=== PATIENT | male | born 1945 | race Caucasian/White ===

== ENCOUNTER 2018-06-18 22:34 | Inpatient (IN) | payer MEDICARE ==
[2018-06-18 23:24] LABS: #Lymphocytes 0.5 thou/uL (1.20-3.40); #Monocytes 0.5 thou/uL (0.11-0.59); #Neutrophils 10.3 thou/uL (1.40-6.50); %Basophils 0.1 % (0.0-1.0); %Eosinophils 0.1 % (0.0-10.0); %Lymphocytes 4.7 % (21.0-51.0); %Monocytes 4.2 % (0.0-10.0); %Neutrophils 90.9 % (42.0-75.0); Hemoglobin 8.3 g/dL (14.0-18.0); Mean Corpuscular Hemoglobin 29.2 pg (27.0-31.0); Mean Corpuscular Volume 94.1 fL (78.0-98.0); Mean Platelet Volume 7.3 fL (7.4-10.4); Platelet Count 337 thou/uL (130-400); RBC Distribution Width 17.4 % (11.5-14.5); Red Blood Cell (RBC) Count 2.83 mill/uL (4.70-6.10); White Blood Cell (WBC) Count 11.3 thou/uL (4.8-10.8)
--- NOTE | 2018-06-18 23:34 | RAD ---
Portable frontal chest radiograph: 06/18/2018 COMPARISON: None HISTORY: Dyspnea FINDINGS: There is dense opacity involving the inferior two thirds of the right hemithorax suggesting a large right pleural effusion with complete obscuration of the right lower lobe and right middle lobe. Mild blunting of left costophrenic angle suggests small volume left pleural fluid. There is mil d increased density within the medial left lung base which may signify partial consolidation/collapse of the left lower lobe. No pneumothorax. IMPRESSION: Dense opacity in the right hemithorax suggests large right pleural effusion. Underlying m ass, infectious pneumonitis, and/or aspiration cannot be excluded. Follow-up imaging following treatment to document resolution advised. Mild nonspecific pleural and parenchymal opacity in the lef t base as well.
[2018-06-18 23:44] LABS: ALT (SGPT) 11 U/L (8-55); AST (SGOT) 15 U/L (5-34); Albumin 2.9 g/dL (3.4-4.8); Alkaline Phosphatase 86 U/L (40-150); Anion Gap 11 mmol/L (10-20); BUN (Urea Nitrogen) 19 mg/dL (8.4-25.7); Bilirubin, Total 1.2 mg/dL (0.2-1.2); Calc. Creatinine Clearance 0 mL/min (70-130); Carbon Dioxide 28 mmol/L (23-31); Chloride 100 mmol/L (98-107); Estimated GFR-MDRD Greater than 90; Globulin 3.3 g/dL (2.4-3.5); Glucose 104 mg/dL (80-115); Potassium 3.2 mmol/L (3.5-5.1); Protein, Total 6.2 g/dL (5.8-8.1); Sodium 136 mmol/L (136-145)
[2018-06-18 23:57] LABS: Bilirubin Small (Negative); Blood, Urine Negative (Negative); Clarity CLOUDY (Clear); Glucose, Urine (Dipstick) Negative (Negative); Leukocyte Small (Negative); Nitrite Negative (Negative); Protein, Urine (Dipstick) 30 mg/dL (Neg-Trace); Specific Gravity, Urine 1.027 (1.002-1.036)
[2018-06-19] LABS: Bacteria/HPF None Seen HPF (None Seen); Pathc Cast-AUWi Flag 3.94 (0-2.49); RBC/HPF 0-3 HPF (0-3); Squamous Epithelial 0-3 HPF (0-3); WBC/HPF 21-50 HPF (0-3)
[2018-06-19 00:17] LABS: Hyaline Casts/LPF NONE SEEN LPF (0-3 Hyaline); Manual Microscopic Reviewed? No Path Casts Seen
[2018-06-19 00:26] LABS: CKMB 1.6 ng/mL (0-6.6)
--- NOTE | 2018-06-19 01:16 | PDOC.FPRHP ---
- History of Present Illness Chief Complaint: SOB History of Present Illness: Patient is a 72yo M who presented to the ED from [facility] in [place] with CC of weakness and SOB. The patient reports decreased appetite as well. He states that his symptoms started last and have gotten progressively worse. He also has a cough that is productive of yellow sputum. Endorses fever/chills since onset of symptoms. Patient has a hx of NV, CHF and cardiac arrest. Patient had a stroke in April of 2018 with left sided deficits and has been in rehab since then. Patient had been getting breathing treatments at the detention with minimal to no improvement in SOB. - Allergies/Adverse Reactions Allergies Allergy/AdvReac Type Severity Reaction Status Date / Time No Known Drug Allergies Allergy Verified 06/19/18 04:29 - Home Medications Medication Instructions Recorded Confirmed Type Amiodarone HCl 100 mg PO BID 06/19/18 06/19/18 History Apixaban [Eliquis] 5 mg PO BID 06/19/18 06/19/18 History Atorvastatin Calcium [Lipitor] 40 mg PO DAILY 06/19/18 06/19/18 History Escitalopram Oxalate [Lexapro] 5 mg PO DAILY 06/19/18 06/19/18 History Ferrous Sulfate 325 tablet PO DAILY 06/19/18 06/19/18 History Finasteride 5 mg PO DAILY 06/19/18 06/19/18 History Folic Acid 1 mg PO DAILY 06/19/18 06/19/18 History Omeprazole 40 mg PO DAILY 06/19/18 06/19/18 History QUEtiapine Fumarate [SEROquel] 25 mg PO HS 06/19/18 06/19/18 History Tamsulosin HCl [Flomax] 0.8 mg PO DAILY 06/19/18 06/19/18 History - History PMHx: CVA w/ left sided deficits, anemia, a fub, BPH, HLD, osteoarthritis, PUD, NV x2 last year PSHx: peg tube placement, cholecystectomy FHx: non contributory Social: former tobacco user for over 30 yrs; denies alcohol or drug use - Review of Systems General: reports: fever/chills, fatigue. denies: weight/appetite/sleep changes , night sweats ENT: reports: nasal congestion, rhinorrhea Respiratory: reports: cough, congestion, shortness of breath. denies: exercise intolerance Cardiovascular: denies: chest pain, palpitation, edema Gastrointestinal: denies: nausea, vomiting, diarrhea, constipation, abdominal pain Genitourinary: denies: dysuria Skin: denies: rashes, lesions Neurological: reports: weakness - Vital signs BP: 91/54, Pulse: 97, Resp: 24, Temp: 99.0 (Oral), Pain: 0, O2 sat: 94 on 4L Oxygen, Time: 06/18/2018 22:37. Weight: 63.5kg BP: 91/56, Pulse: 85, Resp: 28, O2 sat: 96 on Bipap, Time: 06/19/2018 01:44. - Physical Exam Constitutional: awake, alert and oriented -Constitutional: mild resp distress HEENT: normocephalic and atraumatic, PERRLA, EOMI, grossly normal vision, grossly normal hearing, MMM, good dention Neck: supple, FROM, trachea midline Chest: no-tender to palpation, no lesions Heart: RRR, normal S1/S2, no murmurs/rubs/gallops, pulses present -Lungs: Mild resp distress, retractions present, exp wheeze heard diffusely, coarse breath sounds Abdomen: soft, non-tender, bowel sounds present, no masses/distention Musculoskeletal: normal structure, normal tone FMR H&P: Results - Labs Result Diagrams: 06/19/18 03:01 06/19/18 02:48 Lab results: WBC 11.3 thou/uL (4.8-10.8) H 06/18/18 23:12 Hgb 8.3 g/dL (14.0-18.0) L 06/18/18 23:12 Hct 26.7 % (42.0-52.0) L 06/18/18 23:12 MCV 94.1 fL (78.0-98.0) 06/18/18 23:12 Plt Count 337 thou/uL (130-400) 06/18/18 23:12 Neutrophils % 90.9 % (42.0-75.0) H 06/18/18 23:12 Sodium 136 mmol/L (136-145) 06/18/18 23:12 Potassium 3.2 mmol/L (3.5-5.1) L 06/18/18 23:12 Chloride 100 mmol/L (98-107) 06/18/18 23:12 Carbon Dioxide 28 mmol/L (23-31) 06/18/18 23:12 BUN 19 mg/dL (8.4-25.7) 06/18/18 23:12 Creatinine 0.81 mg/dL (0.7-1.3) 06/18/18 23:12 Glucose 104 mg/dL (80-115) 06/18/18 23:12 Lactic Acid 1.1 mmol/L (0.5-2.2) 06/18/18 23:12 Calcium 9.0 mg/dL (7.8-10.44) 06/18/18 23:12 Total Bilirubin 1.2 mg/dL (0.2-1.2) 06/18/18 23:12 AST 15 U/L (5-34) 06/18/18 23:12 ALT 11 U/L (8-55) 06/18/18 23:12 Alkaline Phosphatase 86 U/L (40-150) 06/18/18 23:12 CK-MB (CK-2) 1.6 ng/mL (0-6.6) 06/18/18 23:12 B-Natriuretic Peptide 1309.7 pg/mL (0-100) H 06/18/18 23:12 Serum Total Protein 6.2 g/dL (5.8-8.1) 06/18/18 23:12 Albumin 2.9 g/dL (3.4-4.8) L 06/18/18 23:12 Urine Ketones Negative mg/dL (Negative) 06/18/18 23:45 Urine Blood Negative (Negative) 06/18/18 23:45 Urine Nitrite Negative (Negative) 06/18/18 23:45 Ur Leukocyte Esterase Small (Negative) H 06/18/18 23:45 Urine RBC 0-3 HPF (0-3) 06/18/18 23:45 Urine WBC 21-50 HPF (0-3) H 06/18/18 23:45 Ur Squamous Epith Cells 0-3 HPF (0-3) 06/18/18 23:45 Urine Bacteria None Seen HPF (None Seen) 06/18/18 23:45 - Radiology Interpretation Chest x-ray Status: report reviewed by me (Dense opacity in the right hemithorax suggests large right pleural effusion. Underlying m ass, infectious pneumonitis, and/or aspiration cannot be excluded. Follow-up imaging following treatment to document resolution advised. Mild nonspecific pleural and parenchymal opacity in the left base as well.) FMR H&P: A/P - Problem List (1) Sepsis Current Visit: Yes Status: Acute Code(s): A41.9 - SEPSIS, UNSPECIFIED ORGANISM (2) Pneumonia Current Visit: Yes Status: Acute Code(s): J18.9 - PNEUMONIA, UNSPECIFIED ORGANISM (3) CHF (congestive heart failure) Current Visit: Yes Status: Acute Code(s): I50.9 - HEART FAILURE, UNSPECIFIED (4) BPH (benign prostatic hyperplasia) Current Visit: Yes Status: Acute Code(s): N40.0 - BENIGN PROSTATIC HYPERPLASIA WITHOUT LOWER URINRY TRACT SYMP (5) Leukocytosis Current Visit: Yes Status: Acute Code(s): D72.829 - ELEVATED WHITE BLOOD CELL COUNT, UNSPECIFIED (6) History of NV (myocardial infarction) Current Visit: Yes Status: Acute Code(s): I25.2 - OLD MYOCARDIAL INFARCTION (7) Pleural effusion Current Visit: Yes Status: Acute Code(s): J90 - PLEURAL EFFUSION, NOT ELSEWHERE CLASSIFIED - Plan Acute hypoxemic resp failure 2/2 CHF exacerbation leading to pleural effusion Patient w/ SOB and CXR showing dense opacity in the right hemithorax suggesting large right pleural effusion. Patient w/ hx of CHF. - Will give one dose of lasix and see how patient responds - Pulm consulted, appreciate recs; pt will likely need thoracentesis - Currently satting well on Bipap - BNP 1309.7, Will get echo to evaluate CHF. - Strict I/Os, daily weights, fluid restrict 1800ml Possible PNA - elevated procal, CT scan to evaluate. Will trend procal w/ AM labs. - Will start zosyn Sepsis 2/2 above - see plan above Normocytic Anemia - Hgb 8.3, will trend - Working further w/ peripheral smear, iron studies, folate/B12 Elevated Troponin - 0.0329, will continue to trend - Likely due to demand ischemia vs NSTEMI BPH - home meds Hx of NV - aware, will continue to monitor VS Dispo: admit to IMCU on BIpap, inpatient; > 2midnights Code: FULL DVT ppx: lovenox GI ppx: protonix Lines: right femoral central line placed 06/19 [address] De Leon FMR H&P: Upper Level - Pertinent history 72 yo WM PMH CAD, CHF, and recent CVA. Presents from SNF/NH with a 5 day hx of worsening SOB and subjective fever/chills. No other complaints. ER: labs, EKG, CXR, right femoral line. No medications given. - Pertinent findings Vitals: BP 80-90/50s, SpO2 99% on BiPAP, resp 28 GEN: Mild respiratory distress, speaks in short sentences. CV: RRR, no murmur Pulm: Coarse breath sounds throughout Labs. WBC 11.3, neut 90.9% K 3.2, Trop 0.329, CKMB 1.6, BNP 1300, Procal 1.05 AB.51/ 32.9/55.8/25.4 EKG: NSR CXR: right pleural effusion vs RLL pneumonia - Plan Date/Time: 06/19/18115 I, Darrick Edwards MD, have evaluated this patient and agree with findings/plan as outlined by equine intern resident. Pertinent changes/additions are listed here. 1. Acute hypoxic respiratory distress 2/2 CHF exacerbation vs Aspiration pneumonia: continue BiPAP, since CXR concerning for fluid overload will give Lasix 20 mg IVP and see if symptoms improve. If BP drops, will start pressors and replace IV fluids. Empirically treat with IV zosyn 2. Possible sepsis 2/2 CAP vs aspiration PNA: meets sirs criteria and procalcitonin elevated. IV Abx, blood cultuers, urine cultures, 3. Pleural effusion: CT to evaluate. Consider thoracentesis vs CV surgery consult if CT concerning for empyema 4. Hx CHF: TTE to evaluate, see plan above, BNP below previous exacerbation, 5. Demand ischemia vs NSTEMI: if repeat trop down trending or stable, will not cover but if trending up, start therapeutic lovenox 6. Respiratory alkalosis: BiPAP 7. Hypokalemia: replace with IV KCl, check magnesium 8. Normocytic anemia: iron studies, B12, folate, peripheral smear. Likely 2/2 chronic disease Diet: NPO while on BiPAP PPx: lovenox CODE: FULL Dispo: inpatient, IMCU, >2 midnights. Addendum - Attending - Attending Attestation Date/Time: 06/19/18 0248 I personally evaluated the patient and discussed the management with Dr. Camarena and Dr. Edwards I agree with the History, Examination, Assessment and Plan documented above with any addition or exceptions noted below. 72 yo male with multiple medical conditions presents for evaluation of SOB. Patient with progressive SOTO, SOB over the past few weeks. Worsening weakness. On exam patient with severe respiratory distress with unable to maintain normal O2 saturation while talking. Other VS abnormal. Stat ABG ordered along with BiPAP. Pathologic lung findings on exam and imaging. Will admit patient to IMCU at this time. Continue BiPAP throughout the night. Strict I/Os. Give IVFs. Will place central line incase pressors/inotrope needed. Will need pulm consult in AM for tap. Cultures pending. Will start empiric antibx for suspected pulmonary source. Risk for aspiration present. ECHO and cards in AM. Trend trop. AmeyaMD
[2018-06-19 02:03] LABS: Actual Bicarbonate (HCO3a) 25.4 mEq/L (22-28); Base Excess (BEa) 2.4 mEq/L (-2.0 to +3.0); CO2 Tension 32.9 mmHg (35.0-45.0); O2 Tension (PaO2) 55.8 mmHg (> 70.0); pH, Arterial 7.51 (7.35-7.45)
[2018-06-19] MEDS ORDERED: Acetaminophen 650 MG Suppository PR PRN (02:03)
[2018-06-19] MEDS ORDERED: Ondansetron PF 4 MG/2 ML Vial IVP PRN (02:03)
[2018-06-19] MEDS ORDERED: Acetaminophen 325 MG TAB PO PRN (02:03)
[2018-06-19] MEDS ORDERED: Ondansetron ODT 4 MG TAB PO PRN (02:03)
[2018-06-19 02:04] LABS: Analyzer IN Cardio ER; Calcium, Ionized 1.13 mmol/L (1.12-1.30); Carboxyhemoglobin (COHb) 0.6 gm% (0.0-3.0); Hemoglobin (Hb) 7.9 g/dL (14.0-18.0); Potassium - ABG Lab 2.96 mmol/L (3.70-5.30)
[2018-06-19 02:05] LABS: ALV-art Gradient 159.755 (0-20); Puncture Site LRA
[2018-06-19] MEDS ORDERED: Furosemide 20 MG/2 ML VIAL SLOW IVP SCH ×2 (02:15→09:15)
[2018-06-19] MEDS ORDERED: Potassium Chloride 40 MEQ in Sodium Chloride 0.9% 250 ML 250 ML IVPB SCH (03:00)
[2018-06-19 03:14] LABS: Hemoglobin 7.3 g/dL (14.0-18.0); Mean Corpuscular HGB CONC 32.6 g/dL (32.0-36.0); Mean Corpuscular Hemoglobin 30.6 pg (27.0-31.0); Mean Corpuscular Volume 93.7 fL (78.0-98.0); Mean Platelet Volume 6.9 fL (7.4-10.4); Platelet Count 300 thou/uL (130-400); RBC Distribution Width 17.3 % (11.5-14.5); Red Blood Cell (RBC) Count 2.39 mill/uL (4.70-6.10); White Blood Cell (WBC) Count 10.3 thou/uL (4.8-10.8)
[2018-06-19] MEDS ORDERED: guaiFENesin/DM ER PO SCH (03:15)
[2018-06-19 03:16] LABS: Iron Binding Capacity, Total 123 mcg/dL (261-462); Magnesium 1.4 mg/dL (1.6-2.6)
[2018-06-19 03:23] LABS: Iron Less than 8 ug/dL (65-175); Transferrin, Serum 98 mg/dL (163-344)
[2018-06-19] MEDS ORDERED: Magnesium 2 GM/50 ML 2 GM in Premix Bag 1 BAG IVPB SCH (03:30)
[2018-06-19 03:37] LABS: CKMB 1.1 ng/mL (0-6.6)
[2018-06-19 04:07] LABS: Band 6 % (5-11); Lymphocytes 6 % (21-51); MDiff Complete? YES; Monocytes 1 % (0-10); Neutrophil 87 % (42-75); Platelet Morphology Comment Appears Adequate
[2018-06-19 04:19] LABS: Anion Gap 14 mmol/L (10-20); BUN (Urea Nitrogen) 19 mg/dL (8.4-25.7); Calc. Creatinine Clearance 92 mL/min (70-130); Calcium 8.5 mg/dL (7.8-10.44); Carbon Dioxide 23 mmol/L (23-31); Chloride 102 mmol/L (98-107); Estimated GFR-MDRD Greater than 90; Glucose 100 mg/dL (80-115); Potassium 3.1 mmol/L (3.5-5.1); Sodium 136 mmol/L (136-145)
[2018-06-19 04:53] LABS: Folate (Folic Acid) 15.4 ng/mL (7.0-31.4)
[2018-06-19 07:03] LABS: Troponin I 0.287 ng/mL (< 0.028)
[2018-06-19] MEDS: Piperacillin/Tazobactam 4.5 GM in Sodium Chloride 0.9% 100 ML IVPB SCH ×4 (07:30→23:51)
--- NOTE | 2018-06-19 08:30 | CON ---
DATE OF CONSULTATION: HISTORY OF PRESENT ILLNESS: A 72-year-old gentleman who was transferred from a group home for symptoms of weakness and shortness of breath. X-ray shows a massive right-sided pleural effusion. He has been placed on a BiPAP. This morning, he is denying any chest pain, chills, or sweats. PAST MEDICAL HISTORY: Pertinent for coronary artery disease, CHF, previous cardiac arrest, multiple cardiac stents, history of previous UTI, history of left-sided weakness from the stroke. History atrial fibrillation, BPH, arthritis, peptic ulcer disease. PREVIOUS SURGERIES: Gallbladder, PEG. SOCIAL HISTORY: Previous tobacco abuse, a pack a day. HOME MEDICINES: Includes ferrous sulfate. Additional medicine difficult to verify at this stage. I will try and get additional information from the group home. Since admission, he was started on, 1. Zosyn. 2. Lovenox. REVIEW OF SYSTEMS: Otherwise 10 point negative. PHYSICAL EXAMINATION: GENERAL: He is awake, alert, responsive. VITAL SIGNS: Blood pressure is 90/60, pulse 75, saturations are 95% on BiPAP, respiratory rate 18. CHEST: Extensive rhonchi and crackles. CARDIAC: Normal S1, S2. No gallops. ABDOMEN: No masses. LABORATORY DATA: PO2 is 80, pCO2 55, pH 7.51. He is on a BiPAP. His lytes are normal. Potassium 3.1. His BNP was 1300. X-ray, pleural effusion. Urine shows WBCs. IMPRESSION: 1. History of cerebrovascular accident with left-sided weakness. 2. Large pleural effusion. 3. Respiratory failure. 4. Congestive heart failure. 5. Previous cardiac arrest with atrial fibrillation. 6. Chronic anemia. 7. Severe deconditioning. 8. Urinary tract infection. PLAN: Discontinue BiPAP. Do thoracentesis for relief of his dyspnea and hypoxemia. Agree with empiric antibiotics and neb treatments and steroids initiated. PT, supportive care. We will discuss with family as they arrive. This is a consultation note, 70 minutes, 50% exclusive of thoracentesis time. Job ID: [id number]
[2018-06-19 08:44] LABS: BF Color Yellow; Body Fluid Source Thoracentesis Fluid; Clarity Hazy (Clear); RBC Background Count 0.006; Tube # EDTA
[2018-06-19 08:46] LABS: WBC/NonHematic-Auto 2930 /cumm
[2018-06-19 08:55] LABS: Fluid, Triglycerides 16 mg/dL (Not Available); Pleural Fluid, Amylase Less than 30 U/L (Not Available); Pleural Fluid, Glucose 67 mg/dL; Pleural Fluid, LDH 535 U/L (Not Available); Pleural Fluid, Protein 2.6 g/dL
[2018-06-19 09:01] LABS: BF RBC Count - Manual 183 /cumm
--- NOTE | 2018-06-19 09:18 | RAD ---
PORTABLE CHEST 1 VIEW: Date: 06/19/18 Time: 0829 hours HISTORY: Dyspnea. FINDINGS/IMPRESSION: Comparison made with exam of previous day. Mild interval improvement is seen in the size of the right pleural effusion since the previous day. R emainder of exam is otherwise stable. POS: TPC
--- NOTE | 2018-06-19 09:36 | CT ---
EXAM: CT of the chest without contrast HISTORY: Pleural effusion COMPARISON: Chest x-ray 06/19/2018 TECHNIQUE: Multiple contiguous axial images were obtained in a CT the chest without contrast. Coronal reformats were performed. FINDINGS: HEART: There is a moderate pericardial effusion. Calcification are seen in the coronary arteries. MEDIASTINUM: No hilar or mediastinal lymphadenopathy. Evaluation of the mediastinum is limited withou t IV contrast. LUNGS: Consolidation is seen in the right lung with aeration of the superior aspect of the thorax. At electasis is seen in the left lung base. PLEURAL SPACE: There are tiny bilateral pleural effusions. CHEST WALL SOFT TISSUES: Unremarkable OSSEOUS STRUCTURES: Unremarkable VISUALIZED SUBDIAPHRAGMATIC STRUCTURES: Unremarkable IMPRESSION: 1. Right-sided pneumonia 2. Tiny bilateral pleural effusions. 3. Pericardial effusion
[2018-06-19 09:43] LABS: BF Segmented Neutrophils 89 %; Cell Count Non Hematic 8 %; Lymphocytes 3 %
[2018-06-19] MEDS: Potassium Chloride 20 MEQ TAB PO SCH (10:17)
[2018-06-19] MEDS: Enoxaparin Sodium 40 MG/0.4 ML SYRINGE SC SCH (10:17)
[2018-06-19] MEDS: methylPREDNISolone Sod Succ 40 MG VIAL IVP SCH ×3 (12:36→23:50)
--- NOTE | 2018-06-19 14:39 | OP ---
DATE OF PROCEDURE: 06/19/2018 PROCEDURE PERFORMED: Thoracentesis. INDICATIONS: Pleural effusion. DESCRIPTION OF PROCEDURE: After informed consent, the right posterior thorax was cleaned with chlorhexidine. 1% Xylocaine was infiltrated into the right 9th intercostal space in the midscapular line. Pleural cavity was entered in and 20 mL of slightly turbid yellow fluid was drained without any difficulty. Thereafter, using an 8-Romanian catheter, a total of 1800 mL was removed without any problems. The patient tolerated the procedure well. Pleural effusion sent for appropriate studies including cytology and culture. Job ID: [id number]
[2018-06-19] MEDS: guaiFENesin/DM ER PO SCH (21:14)
[2018-06-20] MEDS: Piperacillin/Tazobactam 4.5 GM in Sodium Chloride 0.9% 100 ML IVPB SCH ×3 (05:12→17:07)
[2018-06-20] MEDS: methylPREDNISolone Sod Succ 40 MG VIAL IVP SCH ×3 (05:12→17:07)
--- NOTE | 2018-06-20 08:29 | PRG ---
DATE OF SERVICE: 06/20/2018 SUBJECTIVE: This morning, he is better. He is less short of breath. OBJECTIVE: VITAL SIGNS: His saturations are 96% on 3 L, respiratory , temperature 97, blood pressure 99/57. CHEST: Bilateral rhonchi and wheezing, right greater than left. CARDIAC: Normal S1, S2. No gallops. ABDOMEN: No masses. LABORATORY DATA: His echo shows EF is only 15%. His pleural fluid protein was 2.6. LDH was 535, but he had 89 segs. White count was 2000. I am concerned about his chest x-ray which shows some volume loss in the right lung consistent with atelectatic lung pneumonia along with the pleural effusion. IMPRESSION: Right parapneumonic effusion, CHF, severe deconditioning. Continue Zosyn, neb treatments, supportive care. Chest x-ray being ordered. Await culture of the pleural fluid and cytology. Job ID: [id number]
[2018-06-20] MEDS ORDERED: Non-Formulary Item 1 EACH (Omeprazole [Omeprazole] 40 MG) PO SCH (09:00)
[2018-06-20] MEDS: Furosemide 40 MG/4 ML VIAL SLOW IVP SCH (09:03)
[2018-06-20] MEDS: Tamsulosin HCl 0.4 MG CAP PO SCH (09:03)
[2018-06-20] MEDS: Enoxaparin Sodium 40 MG/0.4 ML SYRINGE SC SCH (09:03)
[2018-06-20] MEDS: Potassium Chloride 20 MEQ TAB PO SCH (09:04)
[2018-06-20] MEDS: Ferrous Sulfate 325 MG TAB PO SCH (09:04)
[2018-06-20] MEDS: Escitalopram Oxalate 10 mg Tablet PO SCH (09:05)
[2018-06-20] MEDS: Finasteride 5 MG TAB PO SCH (09:05)
[2018-06-20] MEDS: Amiodarone 200 MG TAB PO SCH ×2 (09:05→20:53)
[2018-06-20] MEDS: Folic Acid 1 MG TAB PO SCH (09:05)
[2018-06-20] MEDS: Atorvastatin Calcium 40 MG TAB PO SCH (09:05)
--- NOTE | 2018-06-20 09:15 | RAD ---
FRONTAL VIEW CHEST: Date: 06/20/18 INDICATION: CHF. FINDINGS: There is prominence of the cardiomediastinal silhouette with adjacent prominent pleural based density of the right hemithorax. Mild left basilar density is present. There is vascular congestion. IMPRESSION: 1. Decompensated CHF. 2. Moderate volume right pleural effusion with adjacent parenchymal density that may be related to e gerardo and/or pneumonia. 3. Mild left effusion. 4. Recommend follow-up to resolution. POS: TPC
[2018-06-20] MEDS: guaiFENesin/DM ER PO SCH ×2 (10:40→20:52)
--- NOTE | 2018-06-20 11:25 | PDOC.FM ---
- Subjective Subjective: MAUREEN overnight. Pt reports he is breathing much better after the thoracentesis yesterday. CXR shows persistent pleural fluid and concern for possible pneumonia. - Objective MAR Reviewed: Yes Vital Signs & Weight: Vital Signs (12 hours) Temp Pulse Resp Pulse Ox 06/20/18 11:05 96.8 F L 06/20/18 08:00 100 06/20/18 07:48 71 25 H 96 06/20/18 07:15 97.4 F L 06/20/18 04:00 97.4 F L 98 06/20/18 00:24 73 13 97 06/20/18 00:13 97.7 F 06/20/18 00:00 98 Weight Admit Weight 70.307 kg Weight 68.946 kg Most Recent Monitor Data Heart Rate from ECG 68 NIBP 99/64 NIBP BP-Mean 75 Respiration from ECG 24 SpO2 93 I&O: 06/19/18 06/20/18 06/21/18 06:59 06:59 06:59 Intake Total 923 Output Total 3975 Balance -3052 Result Diagrams: 06/19/18 03:01 06/19/18 02:48 Phys Exam - Physical Examination Constitutional: NAD HEENT: PERRLA, sclera anicteric Neck: no nodes, no JVD Respiratory: no wheezing, no rhonchi rales scattered, diminished bases b/l Cardiovascular: RRR, no significant murmur, no rub Gastrointestinal: soft, non-tender, no distention, positive bowel sounds Musculoskeletal: pulses present, edema present (2+-3+) Neurological: non-focal, moves all 4 limbs Psychiatric: normal affect Skin: no rash Dx/Plan (1) CHF (congestive heart failure) Code(s): I50.9 - HEART FAILURE, UNSPECIFIED Status: Acute (2) History of PR (myocardial infarction) Code(s): I25.2 - OLD MYOCARDIAL INFARCTION Status: Acute (3) Pleural effusion Code(s): J90 - PLEURAL EFFUSION, NOT ELSEWHERE CLASSIFIED Status: Acute (4) Pneumonia Code(s): J18.9 - PNEUMONIA, UNSPECIFIED ORGANISM Status: Acute (5) Sepsis Code(s): A41.9 - SEPSIS, UNSPECIFIED ORGANISM Status: Acute (6) BPH (benign prostatic hyperplasia) Code(s): N40.0 - BENIGN PROSTATIC HYPERPLASIA WITHOUT LOWER URINRY TRACT SYMP Status: Acute - Plan Plan: Acute hypoxemic resp failure 2/2 CHF exacerbation leading to pleural effusion Patient w/ SOB and CXR showing dense opacity in the right hemithorax suggesting large right pleural effusion. S/P thoaracentesis. - continue diuresis - await cytology and pleural cultures - cont abx - likely combined CHF and infectious etiology PNA - elevated procal, - cont zosyn and await pleural cultures - 1/2 bcx show strep pneumo, consider de-escalation after sensitivities Sepsis 2/2 above - VSS - cont abx and monitor Normocytic Anemia -will trend Elevated Troponin - down trended BPH - home meds Hx of PR - aware, will continue to monitor VS Dispo: Stable, cont to monitor this am in IMCU, if continued diuresis and improved vitals, transfer to telemetry later Code: FULL DVT ppx: lovenox GI ppx: protonix Lines: right femoral central line placed 06/19 2 0200 Addendum - Attending - Attending Attestation Date/Time: 06/20/18 [id number] I personally evaluated the patient and discussed the management with Dr. Sheikh. I agree with the History, Examination, Assessment and Plan documented above with any addition or exceptions noted below. No cp/sob/n/v/f/c.
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
[2018-06-21] MEDS: Piperacillin/Tazobactam 4.5 GM in Sodium Chloride 0.9% 100 ML IVPB SCH ×2 (00:42→05:58)
[2018-06-21] MEDS: methylPREDNISolone Sod Succ 40 MG VIAL IVP SCH ×2 (00:42→05:58)
[2018-06-21 06:45] LABS: Hemoglobin 7.3 g/dL (14.0-18.0)
[2018-06-21] MEDS ORDERED: Albuterol Sulfate 1.25 MG/3 ML NEB NEB PRN (08:13)
[2018-06-21 08:26] LABS: #Lymphocytes 0.4 thou/uL (1.20-3.40); #Monocytes 0.2 thou/uL (0.11-0.59); #Neutrophils 8.4 thou/uL (1.40-6.50); %Eosinophils 0.1 % (0.0-10.0); %Lymphocytes 4.4 % (21.0-51.0); %Neutrophils 93.5 % (42.0-75.0); Hemoglobin 7.9 g/dL (14.0-18.0); Mean Corpuscular HGB CONC 31.1 g/dL (32.0-36.0); Mean Corpuscular Hemoglobin 29.2 pg (27.0-31.0); Mean Platelet Volume 7.5 fL (7.4-10.4); Platelet Count 346 thou/uL (130-400); RBC Distribution Width 17.3 % (11.5-14.5); Red Blood Cell (RBC) Count 2.71 mill/uL (4.70-6.10)
--- NOTE | 2018-06-21 08:35 | PDOC.CTH ---
Cardiology Progress Note - Subjective EP progress note 06/21/18 Feels better with diuresis. - Objective Vital Signs Temp Pulse Resp Pulse Ox 06/21/18 08:16 71 20 06/21/18 07:54 100 06/21/18 07:10 96.4 F L 06/21/18 04:00 100 06/21/18 03:27 97.2 F L 06/21/18 00:15 60 14 100 06/21/18 00:00 99 06/20/18 23:26 97.1 F L Admit Weight 155 lb Weight 153 lb 06/20/18 06/21/18 06/22/18 06:59 06:59 06:59 Intake Total 923 1260 Output Total 3975 1450 Balance -3052 -190 - Physical Examination General/Neuro: alert & oriented x3, NAD Neck: no JVD present Lungs: CTA Heart: RRR Abdomen: no HSM, soft Extremities: + edema B (0) - Telemetry Telemetry Rhythm: SR - Labs Result Diagrams: 06/21/18 08:07 06/21/18 08:07 Troponin/CKMB CK-MB (CK-2) 1.1 ng/mL (0-6.6) 06/19/18 02:48 Troponin I 0.287 ng/mL (< 0.028) H 06/19/18 06:20 - Assessment/Plan 1. Acute on chronic CHF with ischemic cardiomyopathy. Severely reduced LVEF:10- 15%. 2. Paroxysmal Atrial fibrillation by history, in SR on low dose amiodarone and chr Eliquis. = monitor 3. History of recurrent CVA. residual hemiparesis. 4. CAD. possible ME by history and subsequent stenting in [facility] 04/2018. 5. History of GI bleed and subsequent Gastric surgery/Peg tube in 04/2018. 6. Large pleural effusion. Status post tap. 7. COPD/smoking 8. Anemia If indeed coronary re-vascularization took place in April, I would recommend reassessing his LVEF in July. IF LVEF <35%, he would benefit from prophilactic ICD placement. Life vest in the interim is an option, albeit pt derives some benfit from continued amiodarone treatment. so far no Ventricular ectopy.
--- NOTE | 2018-06-21 08:35 | PRG ---
DATE OF SERVICE: 06/21/2018 SUBJECTIVE: This morning, he is better. OBJECTIVE: VITAL SIGNS: His saturations are 100% on 2 L, temperature 97, blood pressure 133/58, respiratory rate 18. GENERAL: Otherwise, denies any pain or discomfort. CHEST: Decreased breath sounds. No wheezing. CARDIAC: Normal S1, S2. No gallop. ABDOMEN: No masses. LABORATORY DATA: His culture has grown Streptococcus pneumoniae from his right common femoral vein, probably a pathogen, probably accounted for his parapneumonic effusion. IMPRESSION: 1. Parapneumonic effusion. 2. Streptococcus pneumoniae sepsis. PLAN: He needs additional antibiotics. Will start on Rocephin. Otherwise, continue PT, supportive care, nutrition. Cardiology on board. Job ID: [id number]
[2018-06-21 08:43] LABS: Anion Gap 11 mmol/L (10-20); BUN (Urea Nitrogen) 21 mg/dL (8.4-25.7); Calc. Creatinine Clearance 85 mL/min (70-130); Calcium 8.7 mg/dL (7.8-10.44); Carbon Dioxide 28 mmol/L (23-31); Chloride 101 mmol/L (98-107); Estimated GFR-MDRD Greater than 90; Glucose 193 mg/dL (80-115); Potassium 3.1 mmol/L (3.5-5.1); Sodium 137 mmol/L (136-145)
[2018-06-21] MEDS ORDERED: Cefdinir 300 MG CAP PO SCH (09:00)
[2018-06-21] MEDS: Enoxaparin Sodium 40 MG/0.4 ML SYRINGE SC SCH (09:24)
[2018-06-21] MEDS: cefTRIAXone\\ROCEPHIN 2 GM in Sodium Chloride 0.9% 100 ML IVPB SCH (09:24)
[2018-06-21] MEDS: guaiFENesin/DM ER PO SCH ×2 (09:24→20:40)
[2018-06-21] MEDS: Furosemide 40 MG/4 ML VIAL SLOW IVP SCH (09:25)
[2018-06-21] MEDS: Potassium Chloride 20 MEQ TAB PO SCH (09:25)
[2018-06-21] MEDS: Escitalopram Oxalate 10 mg Tablet PO SCH (09:25)
[2018-06-21] MEDS: Amiodarone 200 MG TAB PO SCH ×2 (09:25→20:39)
[2018-06-21] MEDS: Finasteride 5 MG TAB PO SCH (09:26)
[2018-06-21] MEDS: Atorvastatin Calcium 40 MG TAB PO SCH (09:26)
[2018-06-21] MEDS: Tamsulosin HCl 0.4 MG CAP PO SCH (09:27)
[2018-06-21] MEDS: Folic Acid 1 MG TAB PO SCH (09:27)
[2018-06-21] MEDS: Ferrous Sulfate 325 MG TAB PO SCH (09:27)
--- NOTE | 2018-06-21 10:20 | PDOC.FM ---
- Subjective Subjective: MAUREEN overnight. Pt rpeorts he is feeling better and breathing continues to improve. - Objective MAR Reviewed: Yes Vital Signs & Weight: Vital Signs (12 hours) Temp Pulse Resp Pulse Ox 06/21/18 08:16 71 20 06/21/18 07:54 100 06/21/18 07:10 96.4 F L 06/21/18 04:00 100 06/21/18 03:27 97.2 F L 06/21/18 00:15 60 14 100 06/21/18 00:00 99 06/20/18 23:26 97.1 F L Weight Admit Weight 70.307 kg Weight 69.4 kg Most Recent Monitor Data Heart Rate from ECG 69 NIBP 133/58 NIBP BP-Mean 83 Respiration from ECG 24 SpO2 100 I&O: 06/20/18 06/21/18 06/22/18 06:59 06:59 06:59 Intake Total 923 1260 Output Total 3975 1450 Balance -3052 -190 Result Diagrams: 06/21/18 08:07 06/21/18 08:07 Phys Exam - Physical Examination Constitutional: NAD HEENT: PERRLA, sclera anicteric Neck: no nodes Respiratory: no rhonchi, wheezing present (expiratory) scattered rales Cardiovascular: RRR, no significant murmur, no rub Gastrointestinal: soft, non-tender, no distention, positive bowel sounds Musculoskeletal: no edema, pulses present Neurological: non-focal, moves all 4 limbs Skin: no rash, cap refill <2 seconds Dx/Plan (1) CHF (congestive heart failure) Code(s): I50.9 - HEART FAILURE, UNSPECIFIED Status: Acute (2) History of [place] (myocardial infarction) Code(s): I25.2 - OLD MYOCARDIAL INFARCTION Status: Acute (3) Pleural effusion Code(s): J90 - PLEURAL EFFUSION, NOT ELSEWHERE CLASSIFIED Status: Acute (4) Pneumonia Code(s): J18.9 - PNEUMONIA, UNSPECIFIED ORGANISM Status: Acute (5) Sepsis Code(s): A41.9 - SEPSIS, UNSPECIFIED ORGANISM Status: Acute (6) BPH (benign prostatic hyperplasia) Code(s): N40.0 - BENIGN PROSTATIC HYPERPLASIA WITHOUT LOWER URINRY TRACT SYMP Status: Acute - Plan Plan: Acute hypoxemic resp failure 2/2 CHF exacerbation leading to pleural effusion Patient w/ SOB and CXR showing dense opacity in the right hemithorax suggesting large right pleural effusion. S/P thoaracentesis. - continue diuresis - cardiology and EP consulted, will await recommendations PNA - elevated procal, - abx per pulm zosyn-->omnicef-->rocephin - steroids per pulm Sepsis 2/2 above - resolved Normocytic Anemia -will trend Elevated Troponin - down trended BPH - home meds Hx of DE - aware, will continue to monitor VS Dispo: Stable, transfer to telemetry, await EP and cards recs. Abx per pulm. Code: FULL DVT ppx: lovenox GI ppx: protonix Lines: right femoral central line placed 06/19 2 0200 Addendum - Attending - Attending Attestation Date/Time: 06/21/18 1039 I personally evaluated the patient and discussed the management with Dr. Sheikh. I agree with the History, Examination, Assessment and Plan documented above with any addition or exceptions noted below. Patient doing well. NO f/c/cough/congestion. Lung exam continues to improve. Transition to PO Abx as persistently AF with marked improvement and can defer repeated BCx. Complete 10-14 days total. D/c CVC.
--- NOTE | 2018-06-21 13:05 | PDOC.CTH ---
Cardiology Progress Note - Subjective The pt seen and examined. No cardiac complaints. No overnight events. - Objective Vital Signs Temp Pulse Resp Pulse Ox 06/21/18 11:27 96.1 F L 06/21/18 08:16 71 20 06/21/18 07:54 100 06/21/18 07:10 96.4 F L 06/21/18 04:00 100 06/21/18 03:27 97.2 F L Admit Weight 155 lb Weight 153 lb 06/20/18 06/21/18 06/22/18 06:59 06:59 06:59 Intake Total 923 1260 Output Total 3975 1450 600 Balance -1340 -190 600 - Physical Examination General/Neuro: alert & oriented x3 Neck: no JVD present Lungs: CTA Heart: RRR Abdomen: soft Extremities: other: - Telemetry Telemetry Rhythm: SR - Labs Result Diagrams: 06/21/18 08:07 06/21/18 08:07 Troponin/CKMB CK-MB (CK-2) 1.1 ng/mL (0-6.6) 06/19/18 02:48 Troponin I 0.287 ng/mL (< 0.028) H 06/19/18 06:20 - Assessment/Plan 1. Acute on chronic combined HF with ischemic CMY with EF 10-15% - On Lasix 40mg IV qd; Will start Lisinopril 5mg qd, but no BBlocker for now due to hx of COPD; If re-vascularization took place in April, reassessing his LVEF in July and possible Prophylactic ICD placement for LVEF <35%. Life vest in the internim is an option. 2. Parox AFib - remains in SR; On Amiodarone 100mg BID and Eliquis 3. CAD and possible stent in 04/2018 at [facility] - 4. COPD - managed by beaver trapper 5. Anemia - 6. Hx of CVA, last episode was in 04/2018 - 7. Current smoker - smoking cessation education given to the pt. 8. Hypokelemia - replacement MAR reviewed * Echo on 06/20/2018 with EF 10-15%, mod dilated LA, mod LV, distolic dysfunction, mod MR, and mild TR Pt. seen and eval. by me. I agree with the A/P by the OIL BURNER TECHNICIAN. Appreciate the consult by EP. Chest; bilat. rales. RRR. Continue present management. Poor prognosis. Review of Systems - Review of Systems Constitutional: reports: no symptoms reported EENTM: reports: no symptoms reported Respiratory: reports: no symptoms reported Cardiac (ROS): reports: no symptoms reported ABD/GI: reports: no symptoms reported : reports: no symptoms reported Musculoskeletal: reports: no symptoms reported
[2018-06-22 03:30] LABS: #Lymphocytes 0.4 thou/uL (1.20-3.40); #Monocytes 0.3 thou/uL (0.11-0.59); #Neutrophils 6.8 thou/uL (1.40-6.50); %Lymphocytes 5.3 % (21.0-51.0); %Monocytes 3.9 % (0.0-10.0); %Neutrophils 90.8 % (42.0-75.0); Hemoglobin 7.2 g/dL (14.0-18.0); Mean Corpuscular HGB CONC 30.6 g/dL (32.0-36.0); Mean Corpuscular Hemoglobin 28.8 pg (27.0-31.0); Mean Corpuscular Volume 94.1 fL (78.0-98.0); Mean Platelet Volume 7.5 fL (7.4-10.4); Platelet Count 335 thou/uL (130-400); RBC Distribution Width 17.5 % (11.5-14.5); Red Blood Cell (RBC) Count 2.49 mill/uL (4.70-6.10); White Blood Cell (WBC) Count 7.5 thou/uL (4.8-10.8)
[2018-06-22 03:50] LABS: Anion Gap 8 mmol/L (10-20); BUN (Urea Nitrogen) 22 mg/dL (8.4-25.7); Calc. Creatinine Clearance 82 mL/min (70-130); Calcium 8.5 mg/dL (7.8-10.44); Carbon Dioxide 32 mmol/L (23-31); Chloride 102 mmol/L (98-107); Estimated GFR-MDRD Greater than 90; Glucose 143 mg/dL (80-115); Potassium 3.3 mmol/L (3.5-5.1); Sodium 139 mmol/L (136-145)
--- NOTE | 2018-06-22 05:37 | PDOC.FM ---
- Subjective Subjective: Pt states his breathing is improved. He denies chest pain, dizziness, or light headedness. No acute events overnight. - Objective MAR Reviewed: Yes Vital Signs & Weight: Vital Signs (12 hours) Temp Pulse Resp Pulse Ox 06/22/18 03:22 97.6 F 06/22/18 00:30 64 20 100 06/21/18 23:23 97.5 F L 06/21/18 20:00 100 06/21/18 19:55 68 18 100 06/21/18 19:20 97.4 F L Weight Admit Weight 70.307 kg Weight 69.4 kg Most Recent Monitor Data Heart Rate from ECG 57 NIBP 113/62 NIBP BP-Mean 79 Respiration from ECG 22 SpO2 100 I&O: 06/20/18 06/21/18 06/22/18 06:59 06:59 06:59 Intake Total 923 1260 1305 Output Total 3975 1450 850 Balance -3052 -190 455 Result Diagrams: 06/22/18 03:18 06/22/18 03:18 Phys Exam - Physical Examination Constitutional: NAD HEENT: moist MMs Neck: no JVD Respiratory: wheezing present (at right upper lobes) Decreased breath sounds on the left Cardiovascular: RRR, no significant murmur Gastrointestinal: soft, non-tender, no distention, positive bowel sounds Musculoskeletal: pulses present, edema present Neurological: moves all 4 limbs Psychiatric: A&O x 3 Skin: cap refill <2 seconds Dx/Plan (1) BPH (benign prostatic hyperplasia) Code(s): N40.0 - BENIGN PROSTATIC HYPERPLASIA WITHOUT LOWER URINRY TRACT SYMP Status: Acute (2) CHF (congestive heart failure) Code(s): I50.9 - HEART FAILURE, UNSPECIFIED Status: Acute (3) History of [place] (myocardial infarction) Code(s): I25.2 - OLD MYOCARDIAL INFARCTION Status: Acute (4) Leukocytosis Code(s): D72.829 - ELEVATED WHITE BLOOD CELL COUNT, UNSPECIFIED Status: Acute (5) Pleural effusion Code(s): J90 - PLEURAL EFFUSION, NOT ELSEWHERE CLASSIFIED Status: Acute (6) Pneumonia Code(s): J18.9 - PNEUMONIA, UNSPECIFIED ORGANISM Status: Acute (7) Sepsis Code(s): A41.9 - SEPSIS, UNSPECIFIED ORGANISM Status: Acute - Plan Plan: THis is a 72 yo male with a pmh of BPH and CAD with previous [place] Acute hypoxic respiratory failure 2/2 CHF exacerbation with associated pleural effusion -Pt still require O2 overnight. -S/P thoracentesis -Continue IV lasix -Cardiology and EP consulted, appreciate their recommendations PNA -Elevated procal -Currently on rocephin, abx since (06/19) -Steroids per pulm Sepsis 2/2 above -Resolved Normocytic anemia -Trending, 7.2 this AM -Will transfuse if symptomatic Elevated troponin, resolved Hx of [place] Addendum - Attending - Attending Attestation Date/Time: 06/22/18 1411 I personally evaluated the patient and discussed the management with I agree with the with the History, Examination, Assessment and Plan documented above with any addition or exceptions noted below. Patient would benefit from life Vest. Patient stable enough to transition out of unit appreciate recommendation Cardiology ,EP and Critical Care.
[2018-06-22] MEDS: Lisinopril 5 MG TAB PO SCH (09:23)
[2018-06-22] MEDS: Escitalopram Oxalate 10 mg Tablet PO SCH (09:24)
[2018-06-22] MEDS: Atorvastatin Calcium 40 MG TAB PO SCH (09:24)
[2018-06-22] MEDS: Finasteride 5 MG TAB PO SCH (09:24)
[2018-06-22] MEDS: predniSONE 20 MG TAB PO SCH (09:25)
[2018-06-22] MEDS: Folic Acid 1 MG TAB PO SCH (09:25)
[2018-06-22] MEDS: Tamsulosin HCl 0.4 MG CAP PO SCH (09:25)
[2018-06-22] MEDS: Amiodarone 200 MG TAB PO SCH ×2 (09:26→20:44)
[2018-06-22] MEDS: Ferrous Sulfate 325 MG TAB PO SCH (09:27)
[2018-06-22] MEDS: Potassium Chloride 20 MEQ TAB PO SCH (09:27)
[2018-06-22] MEDS: Furosemide 40 MG/4 ML VIAL SLOW IVP SCH (09:28)
[2018-06-22] MEDS: Enoxaparin Sodium 40 MG/0.4 ML SYRINGE SC SCH (09:28)
[2018-06-22] MEDS: cefTRIAXone\\ROCEPHIN 2 GM in Sodium Chloride 0.9% 100 ML IVPB SCH (09:38)
[2018-06-22] MEDS: guaiFENesin/DM ER PO SCH ×2 (09:54→20:45)
--- NOTE | 2018-06-22 11:09 | EKG ---
Test Reason : Blood Pressure : / mmHG Vent. Rate : 091 BPM Atrial Rate : 091 BPM P-R Int : 124 ms QRS Dur : 096 ms QT Int : 400 ms P-R-T Axes : 034 021 -31 degrees QTc Int : 492 ms Sinus rhythm with Premature atrial complexes Possible Left atrial enlargement Septal infarct , age undetermined Abnormal ECG Confirmed by RUTH BANSAL M.D. ([id number]), development editor GREG SONG ([id number] on 06/22/2018 11:08:52 AM Referred By: Confirmed By:RUTH BANSAL M.D.
--- NOTE | 2018-06-22 11:44 | PRG ---
DATE OF SERVICE: 06/22/2018 SUBJECTIVE: He is doing well. He has no acute complaints. He has orders to go to telemetry. OBJECTIVE: VITAL SIGNS: Temperature 97.0, pulse 69, blood pressure 125/72, O2 saturation is 99% on 1.5 L. HEENT: Unremarkable. NECK: No JVD. CHEST: Diminished breath sounds, right base compared to the left. CARDIAC: S1, S2. Regular. ABDOMEN: Soft. EXTREMITIES: No edema. LABORATORY DATA: White blood cell count 7.5, hematocrit 23.5, and platelet count 335. Sodium 139, potassium 3.3, BUN 22, creatinine 0.8, and glucose 143. ASSESSMENT: 1. Right-sided parapneumonic effusion. 2. Streptococcal pneumonia with sepsis. PLAN: He is continuing antibiotics. Increase activity as tolerated. Likely will be able to go home sometime early next week. Job ID: [id number]
--- NOTE | 2018-06-22 12:09 | PDOC.CTH ---
Cardiology Progress Note - Subjective No new issues. Breathing unchanged. - Objective Vital Signs Temp Pulse Resp BP Pulse Ox 06/22/18 10:24 97.0 F L 06/22/18 09:23 69 125/72 06/22/18 07:08 97.0 F L 06/22/18 06:18 95 06/22/18 06:16 69 22 H 95 06/22/18 03:22 97.6 F 06/22/18 00:30 64 20 100 Admit Weight 155 lb Weight 153 lb 3.2 oz 06/21/18 06/22/18 06/23/18 06:59 06:59 06:59 Intake Total 1260 1455 Output Total 1450 1050 Balance -190 405 - Physical Examination General/Neuro: NAD Neck: no JVD present Lungs: unlabored respirations, other: (Crackles at bases.) Heart: RRR Abdomen: NT/ND Extremities: + edema B (trace) - Telemetry Telemetry Rhythm: NSR - Labs Result Diagrams: 06/22/18 03:18 06/22/18 03:18 Troponin/CKMB CK-MB (CK-2) 1.1 ng/mL (0-6.6) 06/19/18 02:48 Troponin I 0.287 ng/mL (< 0.028) H 06/19/18 06:20 - Assessment/Plan 1. Acute on chronic combined HF 2. 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 Parox AFib currently in sinus. 4. CAD 5. COPD 6. Anemia 7. Hx of CVA 8. Current smoker 9. Hypokelemia PLAN: - Continue amiodaorne and Eliquis for stroke prophylaxis. - Continue IV lasix. - Will need lifevest before discharge. - Replace K.
[2018-06-23] MEDS ORDERED: Chloraseptic Spray 180 ml Bottle PO PRN (00:20)
[2018-06-23] MEDS ORDERED: Melatonin 3 MG TAB PO SCH (00:30)
--- NOTE | 2018-06-23 06:05 | PDOC.FM ---
- Subjective Subjective: Pt reports difficulty sleeping overnight due to cough. He otherwise reports working well with PT. - Objective MAR Reviewed: Yes Vital Signs & Weight: Vital Signs (12 hours) Temp Pulse Resp Pulse Ox 06/23/18 04:00 97.3 F L 06/23/18 01:57 99 06/23/18 00:00 97.6 F 06/22/18 22:56 94 L 06/22/18 20:00 95 06/22/18 19:10 97.4 F L 06/22/18 19:05 95 06/22/18 19:04 70 23 H 95 Weight Admit Weight 70.307 kg Weight 69.808 kg Most Recent Monitor Data Heart Rate from ECG 54 NIBP 104/55 NIBP BP-Mean 71 Respiration from ECG 12 SpO2 90 I&O: 06/21/18 06/22/18 06/23/18 06:59 06:59 06:59 Intake Total 1260 1455 1640 Output Total 1450 1050 1450 Balance -190 405 190 Result Diagrams: 06/23/18 05:59 06/23/18 05:59 Phys Exam - Physical Examination Constitutional: NAD HEENT: moist MMs Neck: no JVD Respiratory: no wheezing decreased breath sounds on the right, stable Cardiovascular: RRR, no significant murmur Gastrointestinal: soft, non-tender, no distention, positive bowel sounds Musculoskeletal: edema present (1+) Neurological: normal sensation, moves all 4 limbs Psychiatric: A&O x 3 Skin: cap refill <2 seconds Dx/Plan (1) BPH (benign prostatic hyperplasia) Code(s): N40.0 - BENIGN PROSTATIC HYPERPLASIA WITHOUT LOWER URINRY TRACT SYMP Status: Acute (2) CHF (congestive heart failure) Code(s): I50.9 - HEART FAILURE, UNSPECIFIED Status: Acute (3) History of AR (myocardial infarction) Code(s): I25.2 - OLD MYOCARDIAL INFARCTION Status: Acute (4) Leukocytosis Code(s): D72.829 - ELEVATED WHITE BLOOD CELL COUNT, UNSPECIFIED Status: Acute (5) Pleural effusion Code(s): J90 - PLEURAL EFFUSION, NOT ELSEWHERE CLASSIFIED Status: Acute (6) Pneumonia Code(s): J18.9 - PNEUMONIA, UNSPECIFIED ORGANISM Status: Acute (7) Sepsis Code(s): A41.9 - SEPSIS, UNSPECIFIED ORGANISM Status: Acute - Plan Plan: This is a 72 yo male with a pmh of BPH and CAD with previous AR Acute hypoxic respiratory failure 2/2 CHF exacerbation with associated pleural effusion -Pt still require O2 overnight. -S/P thoracentesis -Continue IV lasix -Cardiology and EP consulted, appreciate their recommendations PNA -Elevated procal -Currently on rocephin, abx since (06/19) -Steroids per pulm Sepsis 2/2 above -Resolved Normocytic anemia -Trending, 7.2 this AM -Will transfuse if symptomatic Elevated troponin, resolved Hypokalemia -Replacing Hx of AR Pt has peg tube and wanted this removed, plan on performing outpt Addendum - Attending - Attending Attestation Date/Time: 06/23/18 1041 I personally evaluated the patient and discussed the management with Dr. Clark I agree with the History, Examination, Assessment and Plan documented above with any addition or exceptions noted below. Patient out of bed to chair he continues stable will benefit from continued rehab.
[2018-06-23 06:09] LABS: #Lymphocytes 0.7 thou/uL (1.20-3.40); #Monocytes 0.4 thou/uL (0.11-0.59); #Neutrophils 4.4 thou/uL (1.40-6.50); %Basophils 0.3 % (0.0-1.0); %Eosinophils 0.1 % (0.0-10.0); %Lymphocytes 12.2 % (21.0-51.0); %Monocytes 7.7 % (0.0-10.0); %Neutrophils 79.7 % (42.0-75.0); Hemoglobin 7.4 g/dL (14.0-18.0); Mean Corpuscular HGB CONC 30.5 g/dL (32.0-36.0); Mean Corpuscular Hemoglobin 28.6 pg (27.0-31.0); Mean Corpuscular Volume 93.7 fL (78.0-98.0); Mean Platelet Volume 7.3 fL (7.4-10.4); Platelet Count 369 thou/uL (130-400); RBC Distribution Width 17.2 % (11.5-14.5); White Blood Cell (WBC) Count 5.5 thou/uL (4.8-10.8)
[2018-06-23 06:28] LABS: Anion Gap 11 mmol/L (10-20); BUN (Urea Nitrogen) 21 mg/dL (8.4-25.7); Calc. Creatinine Clearance 98 mL/min (70-130); Calcium 8.6 mg/dL (7.8-10.44); Carbon Dioxide 30 mmol/L (23-31); Chloride 101 mmol/L (98-107); Estimated GFR-MDRD Greater than 90; Glucose 112 mg/dL (80-115); Potassium 3.2 mmol/L (3.5-5.1); Sodium 139 mmol/L (136-145)
[2018-06-23] MEDS: guaiFENesin/DM ER PO SCH ×2 (09:44→20:18)
[2018-06-23] MEDS: Potassium Chloride 20 MEQ TAB PO SCH (09:44)
[2018-06-23] MEDS: Tamsulosin HCl 0.4 MG CAP PO SCH (09:44)
[2018-06-23] MEDS: predniSONE 20 MG TAB PO SCH (09:45)
[2018-06-23] MEDS: Escitalopram Oxalate 10 mg Tablet PO SCH (09:45)
[2018-06-23] MEDS: Amiodarone 200 MG TAB PO SCH ×2 (09:45→20:18)
[2018-06-23] MEDS: Ferrous Sulfate 325 MG TAB PO SCH (09:46)
[2018-06-23] MEDS: Finasteride 5 MG TAB PO SCH (09:46)
[2018-06-23] MEDS: Enoxaparin Sodium 40 MG/0.4 ML SYRINGE SC SCH (09:46)
[2018-06-23] MEDS: Folic Acid 1 MG TAB PO SCH (09:46)
[2018-06-23] MEDS: Atorvastatin Calcium 40 MG TAB PO SCH (09:46)
[2018-06-23] MEDS: cefTRIAXone\\ROCEPHIN 2 GM in Sodium Chloride 0.9% 100 ML IVPB SCH (09:48)
[2018-06-23] MEDS: Furosemide 40 MG/4 ML VIAL SLOW IVP SCH (10:05)
--- NOTE | 2018-06-23 10:33 | PRG ---
DATE OF SERVICE: 06/23/2018 SUBJECTIVE: He remains in the [facility], waiting for a bed on the regular floor. He has no acute complaints. OBJECTIVE: VITAL SIGNS: Temperature 96.9, pulse 60, blood pressure 120/68, and O2 saturation 95% on room air. HEENT: Unremarkable. NECK: No JVD. CHEST: Clear to auscultation. CARDIAC: S1 and S2. Regular. ABDOMEN: Soft. EXTREMITIES: No edema. LABORATORY DATA: White blood cell count 5.5, hematocrit 24.3, and platelet count 369. Sodium 139, potassium 3.2, BUN 21, creatinine 0.7, and glucose 112. ASSESSMENT: 1. Right parapneumonic effusion. 2. Streptococcal pneumonia with sepsis. PLAN: The patient basically just needs to increase his strength. He can be converted over to oral antibiotic therapy with Omnicef. Job ID: [id number]
[2018-06-23] MEDS: Lisinopril 5 MG TAB PO SCH (11:51)
--- NOTE | 2018-06-23 14:59 | PDOC.CTH ---
Cardiology Progress Note - Subjective No new issues. - Objective Vital Signs Temp Pulse Pulse Resp BP BP Pulse Ox 06/23/18 14:45 97.0 F L 06/23/18 13:12 69 18 99 06/23/18 11:51 61 113/58 L 06/23/18 10:55 96.8 F L 06/23/18 09:05 64 101/46 L 06/23/18 08:00 100 06/23/18 07:14 96.9 F L 06/23/18 06:47 98 06/23/18 06:44 72 20 98 06/23/18 04:00 97.3 F L Pulse Ox 06/23/18 14:45 06/23/18 13:12 06/23/18 11:51 06/23/18 10:55 06/23/18 09:05 100 06/23/18 08:00 06/23/18 07:14 06/23/18 06:47 06/23/18 06:44 06/23/18 04:00 Admit Weight 155 lb Weight 154 lb 3.2 oz 06/22/18 06/23/18 06/24/18 06:59 06:59 06:59 Intake Total 1455 1840 Output Total 1050 1850 Balance 405 -10 - Physical Examination General/Neuro: alert & oriented x3, NAD Neck: no JVD present Lungs: unlabored respirations Heart: other: (irreg irreg,) Abdomen: NT/ND Extremities: + edema B (1+) - Telemetry Telemetry Rhythm: Afib HR 60's. - Labs Result Diagrams: 06/23/18 05:59 06/23/18 05:59 Troponin/CKMB CK-MB (CK-2) 1.1 ng/mL (0-6.6) 06/19/18 02:48 Troponin I 0.287 ng/mL (< 0.028) H 06/19/18 06:20 - Assessment/Plan 1. Acute on chronic combined HF 2. 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 Parox AFib. 4. CAD 5. COPD 6. Anemia 7. Hx of CVA 8. Current smoker 9. Hypokelemia PLAN: - Continue amiodarone and Eliquis for stroke prophylaxis. - Continue IV lasix. - Will need lifevest before discharge. - Replace K.
[2018-06-23] MEDS ORDERED: Potassium Chloride 20 MEQ TAB PO SCH (15:15)
[2018-06-24] MEDS: Melatonin 3 MG TAB PO PRN ×2 (01:32→23:44)
[2018-06-24 06:57] LABS: #Lymphocytes 0.8 thou/uL (1.20-3.40); #Monocytes 0.5 thou/uL (0.11-0.59); %Basophils 0.5 % (0.0-1.0); %Eosinophils 0.5 % (0.0-10.0); %Monocytes 7.5 % (0.0-10.0); %Neutrophils 79.5 % (42.0-75.0); Hemoglobin 8.1 g/dL (14.0-18.0); Mean Corpuscular HGB CONC 30.7 g/dL (32.0-36.0); Mean Corpuscular Hemoglobin 28.9 pg (27.0-31.0); Mean Corpuscular Volume 94.1 fL (78.0-98.0); Mean Platelet Volume 7.4 fL (7.4-10.4); Platelet Count 421 thou/uL (130-400); RBC Distribution Width 17.5 % (11.5-14.5); Red Blood Cell (RBC) Count 2.81 mill/uL (4.70-6.10); White Blood Cell (WBC) Count 6.3 thou/uL (4.8-10.8)
[2018-06-24 07:21] LABS: Anion Gap 10 mmol/L (10-20); BUN (Urea Nitrogen) 18 mg/dL (8.4-25.7); Calc. Creatinine Clearance 91 mL/min (70-130); Calcium 8.5 mg/dL (7.8-10.44); Carbon Dioxide 30 mmol/L (23-31); Chloride 103 mmol/L (98-107); Estimated GFR-MDRD Greater than 90; Glucose 88 mg/dL (80-115); Potassium 3.9 mmol/L (3.5-5.1); Sodium 139 mmol/L (136-145)
--- NOTE | 2018-06-24 08:02 | PDOC.FM ---
- Subjective Subjective: pt resting comfortably in bed, no CP or SOB - Objective Vital Signs & Weight: Vital Signs (12 hours) Temp Pulse Resp BP Pulse Ox 06/24/18 07:30 97 06/24/18 07:29 76 20 95 06/24/18 03:56 97.6 F 63 18 100/58 L 96 06/23/18 23:26 76 20 Weight Admit Weight 70.307 kg Weight 68.311 kg Most Recent Monitor Data Heart Rate from ECG 67 NIBP 126/75 NIBP BP-Mean 92 Respiration from ECG 24 SpO2 96 I&O: 06/23/18 06/24/18 06/25/18 06:59 06:59 06:59 Intake Total 1840 2380 Output Total 1850 2320 Balance -10 60 Result Diagrams: 06/24/18 06:29 06/24/18 06:29 Phys Exam - Physical Examination Constitutional: NAD HEENT: moist MMs Respiratory: clear to auscultation bilateral Cardiovascular: RRR, no significant murmur Gastrointestinal: soft Musculoskeletal: pulses present Neurological: moves all 4 limbs Psychiatric: normal affect Skin: no rash Dx/Plan (1) BPH (benign prostatic hyperplasia) Code(s): N40.0 - BENIGN PROSTATIC HYPERPLASIA WITHOUT LOWER URINRY TRACT SYMP Status: Acute (2) CHF (congestive heart failure) Code(s): I50.9 - HEART FAILURE, UNSPECIFIED Status: Acute (3) History of VA (myocardial infarction) Code(s): I25.2 - OLD MYOCARDIAL INFARCTION Status: Acute (4) Pleural effusion Code(s): J90 - PLEURAL EFFUSION, NOT ELSEWHERE CLASSIFIED Status: Acute (5) Pneumonia Code(s): J18.9 - PNEUMONIA, UNSPECIFIED ORGANISM Status: Acute - Plan Plan: Acute hypoxic respiratory failure 2/2 CHF exacerbation with associated pleural effusion -Pt still require O2 overnight. -S/P thoracentesis -Continue IV lasix -Cardiology and EP consulted, appreciate their recommendations PNA -Elevated procal -Currently on rocephin, abx since (06/19) -Steroids per pulm Sepsis 2/2 above -Resolved Normocytic anemia -Trending, stable -Will transfuse if symptomatic Elevated troponin, resolved Hypokalemia - improved Hx of VA Pt has peg tube and wanted this removed, plan on performing outpt Dispo- stable for DC to rehab when available with life vest
[2018-06-24] MEDS: Potassium Chloride 20 MEQ TAB PO SCH (08:31)
[2018-06-24] MEDS: Cefdinir 300 MG CAP PO SCH (08:31)
[2018-06-24] MEDS: Atorvastatin Calcium 40 MG TAB PO SCH (08:31)
[2018-06-24] MEDS: Amiodarone 200 MG TAB PO SCH ×2 (08:31→19:46)
[2018-06-24] MEDS: predniSONE 20 MG TAB PO SCH (08:31)
[2018-06-24] MEDS: Escitalopram Oxalate 10 mg Tablet PO SCH (08:34)
[2018-06-24] MEDS: Ferrous Sulfate 325 MG TAB PO SCH (08:34)
[2018-06-24] MEDS: Finasteride 5 MG TAB PO SCH (08:34)
[2018-06-24] MEDS: Lisinopril 5 MG TAB PO SCH (08:35)
[2018-06-24] MEDS: Folic Acid 1 MG TAB PO SCH (08:35)
[2018-06-24] MEDS: Enoxaparin Sodium 40 MG/0.4 ML SYRINGE SC SCH (08:35)
[2018-06-24] MEDS: Tamsulosin HCl 0.4 MG CAP PO SCH (08:35)
[2018-06-24] MEDS: guaiFENesin/DM ER PO SCH ×2 (08:35→19:45)
[2018-06-24] MEDS: Furosemide 40 MG/4 ML VIAL SLOW IVP SCH (08:35)
--- NOTE | 2018-06-24 09:06 | PRG ---
DATE OF SERVICE: 06/24/2018 SUBJECTIVE: A 72-year-old gentleman, this morning, he is better he is weak. He is sitting on the side of the bed. OBJECTIVE: VITAL SIGNS: Saturations are _95% on room air, respiratory rate 20, temperature 97, blood pressure 120/60. CHEST: Decreased breath sounds. No wheezing. CARDIAC: Normal S1 and S2. No gallops. ABDOMEN: No masses. IMPRESSION: 1. Right effusion, probably parapneumonic, better. 2. Staphylococcus sepsis. 3. Congestive heart failure. 4. Cardiomyopathy. PLAN: I agree with Ragini for another several more days. He can be discharged back to the senior living. Job ID: [id number] [facility]
--- NOTE | 2018-06-24 10:52 | PDOC.CTH ---
Cardiology Progress Note - Subjective The pt seen and examined. No overnight events. No cardiac complaints. - Objective Vital Signs Temp Pulse Resp BP BP Pulse Ox 06/24/18 08:35 73 128/60 06/24/18 08:25 97.3 F L 73 20 128/60 97 06/24/18 07:40 97 06/24/18 07:30 97 06/24/18 07:29 76 20 95 06/24/18 03:56 97.6 F 63 18 100/58 L 96 06/23/18 23:26 76 20 Admit Weight 155 lb Weight 150 lb 9.6 oz 06/23/18 06/24/18 06/25/18 06:59 06:59 06:59 Intake Total 1840 2380 600 Output Total 1850 2320 Balance -10 60 600 - Physical Examination General/Neuro: alert & oriented x3 Neck: no JVD present Lungs: CTA Heart: RRR Abdomen: soft Extremities: other: (No edema) - Telemetry Telemetry Rhythm: SR - Labs Result Diagrams: 06/24/18 06:29 06/24/18 06:29 Troponin/CKMB CK-MB (CK-2) 1.1 ng/mL (0-6.6) 06/19/18 02:48 Troponin I 0.287 ng/mL (< 0.028) H 06/19/18 06:20 - Assessment/Plan 1. Acute on chronic combined HF with ischemic CMY with EF 10-15% - On Lasix 40mg IV qd, which will be changed to PO qd. On Lisinopril 5mg qd, but no BBlocker for now due to hx of COPD; If re-vascularization took place in April, reassessing his LVEF in July and possible Prophylactic ICD placement for LVEF < 35%. Life vest in the internim is an option. 2. Parox AFib - remains in SR; On Amiodarone 100mg BID and Lovenox; Will resume Eliquis at discharge 3. CAD and possible stent in 04/2018 at [facility] - Still waiting for the medical record 4. COPD - managed by oyster floater 5. Anemia - Hgb 8.1 today from 7.4 yesterday 6. Hx of CVA, last episode was in 04/2018 - 7. Current smoker - smoking cessation education given to the pt. 8. Hypokelemia - replacement MAR reviewed * Echo on 06/20/2018 with EF 10-15%, mod dilated LA, mod LV, distolic dysfunction, mod MR, and mild TR Pt. seen and eval. by me. sitting up in the chair. I agree with the A/P by the APPLICATIONS PROJECT MANAGER.Says that he is somewhat SOB at night but improves when he sits. He has a severe decr. in the LV syst. function. I agree that he needs a Life-Vest priior to d/c. He could return to rehab. If he does reasonably well and the EF is still severtely compromised after 3 months then consider implanted AICD. Review of Systems - Review of Systems Constitutional: reports: no symptoms reported EENTM: reports: no symptoms reported Respiratory: reports: no symptoms reported Cardiac (ROS): reports: no symptoms reported ABD/GI: reports: no symptoms reported : reports: no symptoms reported Musculoskeletal: reports: no symptoms reported Skin: reports: no symptoms reported
--- NOTE | 2018-06-24 14:44 | PRG ---
DATE OF SERVICE: 06/24/2018 Mr. Choudhury is a 72-year-old gentleman, who was initially admitted with possible sepsis and pneumonia, which have since improved. He also has a history of heart failure. His echocardiogram done on the showed an ejection fraction of only 10% to 15%. His left ventricular size was understandably increased and he did show even some evidence of diastolic dysfunction with a reversed E-to-A ratio. In the event, he was also seen in consultation by the Cardiology Service, and we certainly appreciate their input. They recommended he continue with the IV Lasix. They felt he had an ischemic cardiomyopathy, given his history of coronary artery disease. He was on amiodarone for his atrial fibrillation. Clinically, Mr. Choudhury has improved with his usual management for heart failure and reduced ejection fraction. It is also recommended he get a LifeVest prior to discharge, given his very low EF. He is also on Eliquis for stroke prophylaxis, given his chronic atrial fibrillation. Job ID: [id number]
[2018-06-24 14:48] VITALS: BMI 25.0
--- NOTE | 2018-06-24 16:25 | PDOC.CTH ---
Cardiology Progress Note - Subjective EP progress note 06/24/18 Feels better with diuresis. No Dyspnea. - Objective Vital Signs Temp Pulse Resp BP BP Pulse Ox 06/24/18 12:36 70 16 98 06/24/18 11:42 97.6 F 69 20 122/72 95 06/24/18 08:35 73 128/60 06/24/18 08:25 97.3 F L 73 20 128/60 97 06/24/18 07:40 97 06/24/18 07:30 97 06/24/18 07:29 76 20 95 Admit Weight 155 lb Weight 150 lb 9.6 oz 06/23/18 06/24/18 06/25/18 06:59 06:59 06:59 Intake Total 1840 2380 900 Output Total 1850 2320 700 Balance -10 60 200 - Physical Examination General/Neuro: alert & oriented x3, NAD Neck: no JVD present Lungs: CTA Heart: RRR Abdomen: no HSM, NT/ND, soft Extremities: + edema B - Telemetry Telemetry Rhythm: SR. No VT - Labs Result Diagrams: 06/24/18 06:29 06/24/18 06:29 Troponin/CKMB CK-MB (CK-2) 1.1 ng/mL (0-6.6) 06/19/18 02:48 Troponin I 0.287 ng/mL (< 0.028) H 06/19/18 06:20 - Assessment/Plan 1. Acute on chronic CHF with ischemic cardiomyopathy. Severely reduced LVEF:10- 15%. - Improving vlume status over the weekend. 2. Paroxysmal Atrial fibrillation by history, in SR on low dose amiodarone and chr Eliquis. = monitor 3. History of recurrent CVA. residual hemiparesis. 4. CAD. possible [place] by history and subsequent stenting in [facility] 04/2018. 5. History of GI bleed and subsequent Gastric surgery/Peg tube in 04/2018. 6. Large pleural effusion. Status post tap. 7. COPD/smoking 8. Anemia As per history - coronary re-vascularization took place in April, I would recommend reassessing his LVEF in July. IF LVEF <35%, he would benefit from prophilactic ICD placement. Life vest in the interim is an option, albeit pt derives some benfit from continued amiodarone treatment. so far no Ventricular ectopy. Ok to discharge from EP standpoint.
[2018-06-25 07:01] LABS: #Lymphocytes 0.9 thou/uL (1.20-3.40); #Monocytes 0.4 thou/uL (0.11-0.59); #Neutrophils 7.2 thou/uL (1.40-6.50); %Basophils 0.3 % (0.0-1.0); %Eosinophils 0.3 % (0.0-10.0); %Lymphocytes 10.4 % (21.0-51.0); %Monocytes 4.7 % (0.0-10.0); %Neutrophils 84.4 % (42.0-75.0); Hemoglobin 8.9 g/dL (14.0-18.0); Mean Corpuscular HGB CONC 32.5 g/dL (32.0-36.0); Mean Corpuscular Hemoglobin 30.5 pg (27.0-31.0); Mean Corpuscular Volume 93.9 fL (78.0-98.0); Mean Platelet Volume 7.3 fL (7.4-10.4); Platelet Count 448 thou/uL (130-400); RBC Distribution Width 17.5 % (11.5-14.5); Red Blood Cell (RBC) Count 2.92 mill/uL (4.70-6.10); White Blood Cell (WBC) Count 8.5 thou/uL (4.8-10.8)
--- NOTE | 2018-06-25 07:16 | PDOC.FM ---
- Subjective Subjective: pt resting comfortably in bed, ambulating well, tolerating PO. denies SOB or CP - Objective Vital Signs & Weight: Vital Signs (12 hours) Temp Pulse Resp BP Pulse Ox 06/25/18 03:44 98.0 F 74 18 119/64 95 06/24/18 23:12 70 16 96 06/24/18 19:45 97.5 F L 65 18 108/61 96 Weight Admit Weight 70.307 kg Weight 142.4 g Most Recent Monitor Data Heart Rate from ECG 67 NIBP 126/75 NIBP BP-Mean 92 Respiration from ECG 24 SpO2 96 I&O: 06/24/18 06/25/18 06/26/18 06:59 06:59 06:59 Intake Total 2380 1680 Output Total 2320 1000 Balance 60 680 Result Diagrams: 06/25/18 06:37 06/25/18 06:37 Phys Exam - Physical Examination Constitutional: NAD HEENT: moist MMs Neck: no JVD Gastrointestinal: no distention Musculoskeletal: no edema Neurological: moves all 4 limbs Psychiatric: normal affect Skin: no rash Dx/Plan (1) BPH (benign prostatic hyperplasia) Code(s): N40.0 - BENIGN PROSTATIC HYPERPLASIA WITHOUT LOWER URINRY TRACT SYMP Status: Acute (2) CHF (congestive heart failure) Code(s): I50.9 - HEART FAILURE, UNSPECIFIED Status: Acute (3) History of [place] (myocardial infarction) Code(s): I25.2 - OLD MYOCARDIAL INFARCTION Status: Acute (4) Pleural effusion Code(s): J90 - PLEURAL EFFUSION, NOT ELSEWHERE CLASSIFIED Status: Acute (5) Pneumonia Code(s): J18.9 - PNEUMONIA, UNSPECIFIED ORGANISM Status: Acute - Plan Plan: Acute hypoxic respiratory failure 2/2 CHF exacerbation with associated pleural effusion -Pt has intermittent O2 requirements -S/P thoracentesis, Continue IV lasix, amio -Cardiology and EP consulted, have cleared for DC PNA -Elevated procal - continue omnicef, steroid Sepsis 2/2 above -Resolved Normocytic anemia -Trending, stable -Will transfuse if symptomatic Elevated troponin, resolved Hypokalemia - improved Hx of OR Pt has peg tube and wanted this removed, plan on performing outpt Dispo- stable for DC to rehab when available with life vest
[2018-06-25 07:20] LABS: Anion Gap 10 mmol/L (10-20); BUN (Urea Nitrogen) 14 mg/dL (8.4-25.7); Calc. Creatinine Clearance 0 mL/min (70-130); Calcium 8.7 mg/dL (7.8-10.44); Carbon Dioxide 30 mmol/L (23-31); Chloride 99 mmol/L (98-107); Estimated GFR-MDRD Greater than 90; Glucose 90 mg/dL (80-115); Potassium 4.1 mmol/L (3.5-5.1); Sodium 135 mmol/L (136-145)
[2018-06-25] MEDS ORDERED: Furosemide 40 MG TAB PO SCH (07:30)
[2018-06-25] MEDS: Potassium Chloride 20 MEQ TAB PO SCH (08:53)
[2018-06-25] MEDS: predniSONE 20 MG TAB PO SCH (08:54)
[2018-06-25] MEDS: Cefdinir 300 MG CAP PO SCH (08:54)
[2018-06-25] MEDS: Escitalopram Oxalate 10 mg Tablet PO SCH (08:55)
[2018-06-25] MEDS: Ferrous Sulfate 325 MG TAB PO SCH (08:55)
[2018-06-25] MEDS: Amiodarone 200 MG TAB PO SCH (08:56)
[2018-06-25] MEDS: Tamsulosin HCl 0.4 MG CAP PO SCH (08:57)
[2018-06-25] MEDS: Finasteride 5 MG TAB PO SCH (08:58)
[2018-06-25] MEDS: Folic Acid 1 MG TAB PO SCH (08:58)
[2018-06-25] MEDS: Atorvastatin Calcium 40 MG TAB PO SCH (08:59)
[2018-06-25] MEDS: Lisinopril 5 MG TAB PO SCH (08:59)
[2018-06-25] MEDS: Enoxaparin Sodium 40 MG/0.4 ML SYRINGE SC SCH (09:01)
[2018-06-25] MEDS: guaiFENesin/DM ER PO SCH (09:02)
--- NOTE | 2018-06-25 09:44 | PRG ---
DATE OF SERVICE: 06/25/2018 SUBJECTIVE: This morning, he is better, less short of breath. He is waiting for a LifeVest before getting him discharged. OBJECTIVE: VITAL SIGNS: Saturations are 96 on 2 L, respiratory rate 19, temperature 98, and blood pressure 121/76. CHEST: Decreased breath sounds. No wheezing. CARDIAC: Normal S1 and S2. No gallops. ABDOMEN: No masses. LABORATORY DATA: Lytes are normal. H and H unremarkable. IMPRESSION: Pneumonia, sepsis, and congestive heart failure. PLAN: Continue p.o. antibiotics. Home post LifeVest placement. Job ID: [id number]
--- NOTE | 2018-06-25 12:16 | PRG ---
DATE OF SERVICE: 06/25/2018 Abdirahman is continuing to feel well. He has been approved for his LifeVest. After this is applied, he will be referred for a rehab placement. Job ID: [id number]
--- NOTE | 2018-06-25 12:58 | PDOC.CTH ---
Cardiology Progress Note - Subjective EP progress note: 06/25/18 Feels well today. No dyspnea. Cannot recall the last time he felt this well. Anticipating possible DC - Objective Vital Signs Temp Pulse Pulse Pulse Pulse Resp BP 06/25/18 11:50 97.6 F 61 18 06/25/18 10:03 71 66 75 106/55 L 06/25/18 08:05 98.3 F 75 19 06/25/18 07:25 06/25/18 07:23 73 16 06/25/18 03:44 98.0 F 74 18 BP BP Pulse Ox Pulse Ox Pulse Ox Pulse Ox 06/25/18 11:50 116/61 97 06/25/18 10:03 104/54 L 95 92 L 94 L 06/25/18 08:05 121/76 96 06/25/18 07:25 100 06/25/18 07:23 100 06/25/18 03:44 119/64 95 Admit Weight 155 lb Weight 5.023 oz 06/24/18 06/25/18 06/26/18 06:59 06:59 06:59 Intake Total 2380 1680 Output Total 2320 1000 Balance 60 680 - Physical Examination General/Neuro: alert & oriented x3, NAD Neck: carotid US brisk, no JVD present Lungs: CTA, unlabored respirations Heart: PMI normal, RRR Abdomen: NT/ND, soft - Telemetry Telemetry Rhythm: SR - Labs Result Diagrams: 06/25/18 06:37 06/25/18 06:37 Troponin/CKMB CK-MB (CK-2) 1.1 ng/mL (0-6.6) 06/19/18 02:48 Troponin I 0.287 ng/mL (< 0.028) H 06/19/18 06:20 - Assessment/Plan 1. Acute on chronic CHF with ischemic cardiomyopathy. - Severely reduced LVEF:10-15%. - Improved volume status over the weekend. 2. Paroxysmal Atrial fibrillation by history -in SR on low dose amiodarone and chr Eliquis. = monitor 3. History of recurrent CVA. -residual hemiparesis. 4. CAD. -possible [place] by history and subsequent stenting in [facility] 04/2018. 5. History of GI bleed and subsequent Gastric surgery/Peg tube in 04/2018. 6. Large pleural effusion. -Status post tap. 7. COPD/smoking 8. Anemia As per history - coronary re-vascularization took place in April, I would recommend reassessing his LVEF in July with kiln fireman. IF LVEF <35%, he would benefit from prophylactic ICD placement. Will wait to hear from cardiology with echo results next month. Life vest in the interim (is being placed this AM). Pt derives some benfit from continued amiodarone treatment. So far no Ventricular ectopy. Ok to discharge from EP standpoint.
--- NOTE | 2018-06-25 13:43 | PDOC.CTH ---
Cardiology Progress Note - Subjective The pt seen and examined. No overnight events. No cardiac complaints. - Objective Vital Signs Temp Pulse Pulse Pulse Pulse Resp BP 06/25/18 13:02 80 16 06/25/18 11:50 97.6 F 61 18 06/25/18 10:03 71 66 75 106/55 L 06/25/18 08:05 98.3 F 75 19 06/25/18 07:25 06/25/18 07:23 73 16 06/25/18 03:44 98.0 F 74 18 BP BP Pulse Ox Pulse Ox Pulse Ox Pulse Ox 06/25/18 13:02 98 06/25/18 11:50 116/61 97 06/25/18 10:03 104/54 L 95 92 L 94 L 06/25/18 08:05 121/76 96 06/25/18 07:25 100 06/25/18 07:23 100 06/25/18 03:44 119/64 95 Admit Weight 155 lb Weight 5.023 oz 06/24/18 06/25/18 06/26/18 06:59 06:59 06:59 Intake Total 2380 1680 Output Total 2320 1000 Balance 60 680 - Physical Examination General/Neuro: alert & oriented x3 Neck: no JVD present Lungs: CTA (No edema) Heart: RRR Abdomen: soft Extremities: other: - Telemetry Telemetry Rhythm: SR - Labs Result Diagrams: 06/25/18 06:37 06/25/18 06:37 Troponin/CKMB CK-MB (CK-2) 1.1 ng/mL (0-6.6) 06/19/18 02:48 Troponin I 0.287 ng/mL (< 0.028) H 06/19/18 06:20 - Assessment/Plan 1. Acute on chronic combined HF with ischemic CMY with EF 10-15% - On Lasix 40mg PO qd. On Lisinopril 5mg qd, but no BBlocker for now due to hx of COPD; If re-vascularization took place in April, reassessing his LVEF in July and possible Prophylactic ICD placement for LVEF <35%. Life vest in the internim is an option. 2. Parox AFib - remains in SR; On Amiodarone 100mg BID and Lovenox; Will resume Eliquis at discharge 3. [facility] - Still waiting for the medical record 4. COPD - managed by flux plant operator 5. Anemia - 6. Hx of CVA, last episode was in 04/2018 - 7. Current smoker - smoking cessation education given to the pt. 8. Hypokelemia - replacement MAR reviewed * Echo on 06/20/2018 with EF 10-15%, mod dilated LA, mod LV, distolic dysfunction, mod MR, and mild TR * D/c home with Life-Vest priior to d/c. He could return to rehab. If he does reasonably well and the EF is still severely compromised after 3 months then consider implanted AICD. pt. seen and eval. by me. i agree with the A/P by the JUNIOR HIGH MATH TEACHER. He is stable from a cardiac standpoint to return to rehab or SNU after the Life-Vest is placed. Review of Systems - Review of Systems Constitutional: reports: no symptoms reported EENTM: reports: no symptoms reported Respiratory: reports: no symptoms reported Cardiac (ROS): reports: no symptoms reported ABD/GI: reports: no symptoms reported : reports: no symptoms reported Musculoskeletal: reports: no symptoms reported
[2018-06-25 17:26] VITALS: BP 112/58; TEMP 97.6
--- NOTE | 2018-06-26 12:02 | DIS ---
DATE OF ADMISSION: 06/19/2018 DATE OF DISCHARGE: 06/25/2018 RESIDENT: Darryl Lucero DO IMAGING: Chest x-ray, significant for a large right pleural effusion. Echocardiogram, significant for ejection fraction visually estimated at 10% to 15%. PROCEDURES: Thoracentesis was performed, approximately 1800 mL was removed. CONSULTS: 1. Cardiology, Dr. Eladia Griffin. 2. Electrophysiology, Dr. Atif Salcido. 3. Pulmonology, Dr. Gilberto Liu. DISCHARGE MEDICATIONS: 1. Ferrous sulfate 325 mg tablet p.o. daily. 2. Omeprazole 40 mg p.o. daily. 3. Seroquel 25 mg p.o. at bedtime. 4. Lexapro 5 mg p.o. daily. 5. Folic acid 1 mg p.o. daily. 6. Lipitor 40 mg p.o. daily. 7. Eliquis 5 mg p.o. b.i.d. 8. Amiodarone 100 mg p.o. b.i.d. 9. Flomax 0.8 mg p.o. daily. 10. Finasteride 5 mg p.o. daily. 11. Omnicef 600 mg p.o. daily. 12. Lasix 40 mg p.o. daily. 13. Lisinopril 5 mg p.o. daily. 14. K-Dur 40 mEq p.o. q.a.m. with meals. PRIMARY DIAGNOSES: 1. Acute hypoxic respiratory failure secondary to congestive heart failure exacerbation with associated pleural effusion. 2. Pneumonia. 3. Sepsis secondary to above. 4. Normocytic anemia. 5. Elevated troponin. 6. Hypokalemia. 7. History of myocardial infarction. 8. Existence of PEG tube. HISTORY OF PRESENT ILLNESS/HOSPITAL COURSE: Mr. Choudhury is a single male, who initially presented to the emergency department from a [facility] facility in [place] with chief complaint of weakness and shortness of breath, decreased appetite. At that time, he was found to have a large right pleural effusion and a possible pneumonia. The patient was started on antibiotics and the pleural effusion was drained. The patient was noted to have shortness of breath and an elevated BNP and elevated troponins. An echocardiogram was obtained, it showed an ejection fraction of 10% to 15%. This was new in onset for this patient and Cardiology, Electrophysiology was consulted at that time. The patient was optimized on medical management. Vital signs remained stable. LifeVest was recommended and placed before discharge. The patient was tolerating p.o. diet, ambulating successfully, and deemed stable for discharge back to nursing and rehab center for followup with Cardiology and Electrophysiology in the next 4 weeks to receive either Watchman procedure or AICD for atrial fibrillation, congestive heart failure, and need for anticoagulation and rate/rhythm control. DISCHARGE INSTRUCTIONS: Location: [facility]. Diet: Heart healthy, low-sodium. Activity: As tolerated as per cardiopulmonary limits. PT and OT to treat and eval. Followup: 1. [facility]. 2. Follow up with electrophysiology in the next 4 weeks. Job ID: [id number] ALLYSON
== END 2018-06-25 18:54 | DRG 871 ==
LOC: ERS 22:34 → ERHOLD 06-19 00:32 → IMCU/EMU 06-19 02:27 → 2NO 06-23 16:33
PROVIDERS: ADMIT Student in an Organized Health Care Education/Training Program; ATTEND Student in an Organized Health Care Education/Training Program
PROC: 0W9930Z Drainage of Right Pleural Cavity with Drainage Device, Percutaneous Approach (ICD-10-PCS; principal; 2018-06-19)
DX: A40.3 Sepsis due to Streptococcus pneumoniae (principal); J18.9 Pneumonia, unspecified organism; J96.01 Acute respiratory failure with hypoxia; I50.43 Acute on chronic combined systolic (congestive) and diastolic (congestive) heart failure; J90 Pleural effusion, not elsewhere classified; N39.0 Urinary tract infection, site not specified; N40.0 Benign prostatic hyperplasia without lower urinary tract symptoms; E78.5 Hyperlipidemia, unspecified; M19.91 Primary osteoarthritis, unspecified site; D64.9 Anemia, unspecified; R74.8 Abnormal levels of other serum enzymes; I25.5 Ischemic cardiomyopathy; I25.10 Atherosclerotic heart disease of native coronary artery without angina pectoris; J44.9 Chronic obstructive pulmonary disease, unspecified; I48.0 Paroxysmal atrial fibrillation; Z86.73 Personal history of transient ischemic attack (TIA), and cerebral infarction without residual deficits; Z79.899 Other long term (current) drug therapy; I25.2 Old myocardial infarction; Z90.49 Acquired absence of other specified parts of digestive tract; Z87.891 Personal history of nicotine dependence; Z95.5 Presence of coronary angioplasty implant and graft
CPT/HCPCS: 36415; 36556; 71045; 71250; 80048; 80053; 81003; 81015; 82150; 82274; 82553; 82607; 82728; 82746; 82805; 82945; 83540; 83550; 83605; 83615; 83735; 83880; 83986; 84145; 84157; 84466; 84478; 84484; 85014; 85018; 85025; 85060; 87040; 87070; 87077; 87086; 87116; 87149; 87186; 87205; 87206; 88112; 88305; 89051; 93005; 93306; 93798; 94640; 94660; J0696; J1650; J1940; J2543; J2920; J3475; J3480; J3490; J7050; J7512; J7620